=== PATIENT | male | born 1975 | race Caucasian/White ===

== ENCOUNTER 2017-10-05 22:48 | Emergency (ER) | payer MEDICAID ==
[~2017-10-05] VITALS: Ht 182.9 cm; Wt 70.3 kg
[2017-10-05] MEDS ORDERED: FLOMAX0.4 MG PO (23:00)
[2017-10-05] MEDS ORDERED: PERCOCET 5-3251 EACH PO (23:00)
[2017-10-05] MEDS ORDERED: ZOFRAN ODT4 MG PO (23:01)
== END 2017-10-06 00:45 | disposition home or self-care (01) ==
LOC: ED 22:48
DX: N23 Unspecified renal colic (principal); Z88.0 Allergy status to penicillin; Z79.899 Other long term (current) drug therapy
CPT/HCPCS: 81001; 96372; 99283; J2270; J2550